=== PATIENT | female | born 1950 | race Caucasian/White ===

== ENCOUNTER 2021-08-11 18:28 | Emergency (ER) | payer MEDICARE ==
[~2021-08-11] VITALS: Ht 175.3 cm; Wt 71.9 kg
[2021-08-11 19:24] VITALS: BP 161/79
[2021-08-11] MEDS ORDERED: ketorolac trometh. 30mg/ml inj. IM ONE (21:05)
== END 2021-08-11 21:38 | disposition home or self-care (01) ==
LOC: ER 18:31
DX: M79.671 Pain in right foot (principal)
CPT/HCPCS: 73630; 96372; 99284; J1885